=== PATIENT | male | born 1995 | race Caucasian/White ===

== ENCOUNTER 2017-04-28 19:12 | Emergency (ER) | payer BC ==
[2017-04-28] MEDS ORDERED: Lidocaine 1% MPF* 2 ML VIAL INJ ONE (19:14)
[2017-04-28 19:19] VITALS: BP 146/74
[2017-04-28] MEDS ORDERED: Benzoin Compound STICK TOPICAL ONE (19:56)
--- NOTE | 2017-04-28 20:23 | UC ---
Laceration HPI - HPI Summary HPI Summary: RIGHT FOURTH FINGER LACERATION, CUT CUTICLE WITH CAN LID WHILE MAKING DINNER. - History Of Current Complaint Chief Complaint: UCLaceration Stated Complaint: FINGER LAC Time Seen by Provider: 04/28/17 19:23 Hx Obtained From: Patient Laceration Location: Finger Mechanism Of Injury: Sharp Trauma Onset/Duration: Sudden Onset Severity: Mild Aggravating Factors: Movement Related History: Dominant Hand Right - Allergies/Home Medications Allergies/Adverse Reactions: Allergies Allergy/AdvReac Type Severity Reaction Status Date / Time No Known Allergies Allergy Verified 04/28/17 19:20 Home Medications: Home Medications Cmaagpp-Podwutnobhgnc-Hfuolpuo [Excedrin Migraine] 1 tab PO 04/28/17 [History] Cyproheptadine TAB* [Periactin TAB*] 04/28/17 [History] Magnesium 200 mg PO 04/28/17 [History] Mometasone NASAL (NF) [Nasonex (NF)] 1 spray .SEE ORDER 04/28/17 [History] Omeprazole CAP* [Prilosec CAP* 20 MG] 20 mg PO DAILY 04/28/17 [History Confirmed 04/28/17] PMH/Surg Hx/FS Hx/Imm Hx Previously Healthy: Yes - Surgical History Surgical History: Yes Surgery Procedure, Year, and Place: lt wrist - Family History Known Family History: Negative: Blood Disorder - Social History Occupation: Student Lives: With Family Alcohol Use: Weekly Substance Use Type: None Smoking Status (MU): Never Smoked Tobacco Review of Systems Constitutional: Negative Skin: Other - LACERATION RIGHT 4TH FINGER Eyes: Negative ENT: Negative Respiratory: Negative Cardiovascular: Negative Gastrointestinal: Negative Genitourinary: Negative Motor: Negative Neurovascular: Negative Musculoskeletal: Negative Neurological: Negative Psychological: Negative Is Patient Immunocompromised?: No All Other Systems Reviewed And Are Negative: Yes Physical Exam Triage Information Reviewed: Yes Appearance: Well-Appearing, No Pain Distress, Well-Nourished Vital Signs: Initial Vital Signs Temp 99.5 F 04/28/17 19:16 Pulse 71 04/28/17 19:16 Resp 18 04/28/17 19:16 BP 146/74 04/28/17 19:16 Pulse Ox 100 04/28/17 19:16 Vital Signs Reviewed: Yes Eye Exam: Normal ENT Exam: Normal ENT: Positive: Normal ENT inspection, TMs normal Dental Exam: Normal Neck exam: Normal Neck: Positive: Supple, Nontender, No Lymphadenopathy Respiratory Exam: Normal Respiratory: Positive: Chest non-tender, Lungs clear, Normal breath sounds, No respiratory distress, No accessory muscle use Cardiovascular Exam: Normal Cardiovascular: Positive: RRR, No Murmur, Pulses Normal Abdominal Exam: Normal Musculoskeletal Exam: Normal Musculoskeletal: Positive: Strength Intact, ROM Intact, No Edema Neurological Exam: Normal Psychological Exam: Normal Skin: Positive: Other - 0.3CM LACERATION RIGHT 4TH FINGER CUTICLE Laceration Repair - Laceration Repair 1 Description: Linear Laceration Size After Repair: Length (cm) - 0.3, Width (mm) - 2, Depth (mm) - 3 Cleansing Completed Via Routine Prep: Yes Irrigation With Pressure Irrigation Device: Yes Closure Material: Skin Adhesive, SteriStrips Laceration Course/Dx - Differential Dx - Laceration/Wound Differental Diagnoses: Joint Infection, Laceration Provider Diagnoses: RIGHT FOURTH FINGER LACERATION WITH REPAIR (STERISTRIPS AND SKIN ADHESIVE) Discharge - Discharge Plan Condition: Stable Disposition: HOME Patient Education Materials: Finger Fracture (ED), Skin Adhesive Care (ED), Steristrips (ED) Referrals: [facility] [Outside] [facility] [Outside] Images Hands: 1 - 0.3 CM LACERATION HERE
== END 2017-04-28 20:33 | disposition home or self-care (01) ==
LOC: UCEAST 19:12
DX: S61.214A Laceration without foreign body of right ring finger without damage to nail, initial encounter (principal); W26.8XXA Contact with other sharp object(s), not elsewhere classified, initial encounter; Y93.G3 Activity, cooking and baking
CPT/HCPCS: 99201; G0463

== ENCOUNTER 2017-10-23 21:41 | Emergency (ER) | payer BC ==
[2017-10-23] MEDS ORDERED: Acetaminophen TAB* 325 MG PO ONE (23:58)
--- NOTE | 2017-10-23 23:59 | ED ---
Upper Extremity Pain - HPI Summary HPI Summary: 22 male presents ED with complaints of right arm pain after an injury. States he fell after slipping on some grass just prior to arrival. States he has some limited range of motion due to pain. Denies any numbness or tingling. Did not hurt neck or back. Denies any head injury. No other complaints. Did take 2 Advil prior to arrival. No past medical history. Patient is right-hand dominant. - History of Current Complaint Chief Complaint: EDExtremityUpper Stated Complaint: FALL/RT ARM INJURY Time Seen by Provider: 10/23/17 22:58 Hx Obtained From: Patient Mechanism Of Injury: Fall From A Standing Position Onset/Duration: Started Hours Ago, Traumatic, Still Present Timing: Constant Severity Initially: Moderate Severity Currently: Moderate Pain Location: Arm - Right Character: Sharp, Aching Aggravating Factor(s): Movement Alleviating Factor(s): Rest Associated Signs & Symptoms: Positive: Negative Related History: Dominant Hand Right - Allergies/Home Medications Allergies/Adverse Reactions: Allergies Allergy/AdvReac Type Severity Reaction Status Date / Time egg Allergy Hives Verified 10/23/17 21:48 PMH/Surg Hx/FS Hx/Imm Hx Endocrine/Hematology History: Denies: Hx Anticoagulant Therapy, Hx Diabetes Cardiovascular History: Denies: Hx Hypertension Respiratory History: Reports: Hx Asthma - as a child - Surgical History Surgery Procedure, Year, and Place: lt wrist - Immunization History Immunizations Up to Date: Yes Infectious Disease History: No Infectious Disease History: Denies: Traveled Outside the [place] in Last 30 Days - Family History Known Family History: Positive: None Negative: Blood Disorder - Social History Alcohol Use: Weekly Substance Use Type: Reports: None Smoking Status (MU): Never Smoked Tobacco Review of Systems Constitutional: Negative Cardiovascular: Negative Respiratory: Negative Gastrointestinal: Negative Positive: Arthralgia, Myalgia, Decreased ROM Skin: Negative Neurological: Negative All Other Systems Reviewed And Are Negative: Yes Physical Exam Triage Information Reviewed: Yes Vital Signs On Initial Exam: Initial Vitals Temp Pulse Resp BP Pulse Ox 98.8 F 66 16 136/85 100 10/23/17 21:46 10/23/17 21:46 10/23/17 21:46 10/23/17 21:46 10/23/17 21:46 Vital Signs Reviewed: Yes Appearance: Positive: Well-Appearing, No Pain Distress, Well-Nourished Skin: Positive: Warm, Skin Color Reflects Adequate Perfusion, Dry, Other - Small abrasion to right elbow not actively bleeding very superficial. Negative : Cold, Numb, Cyanosis @, Pale, Erythema @, Cold Injury Head/Face: Positive: Normal Head/Face Inspection Eyes: Positive: EOMI ENT: Positive: Hearing grossly normal Neck: Positive: Supple, Nontender Respiratory/Lung Sounds: Positive: Clear to Auscultation, Breath Sounds Present. Negative: Rales, Rhonchi, Wheezes Cardiovascular: Positive: Normal, RRR, Pulses are Symmetrical in both Upper and Lower Extremities - 2+. Negative: Murmur, Rub Abdomen Description: Positive: Nontender, Soft Bowel Sounds: Positive: Present Musculoskeletal: Positive: Limited @ - With range of motion of right arm, worse with abduction. Has good range of motion of the forearm distal to elbow, Pain @ - Right arm, Other - No obvious deformity, crepitus, step-off, ecchymosis, edema. Rest of MSK exam normal. Negative: Edema Left, Edema Right Neurological: Positive: Normal, Sensory/Motor Intact, Alert, Oriented to Person Place, Time, NV Bundle Intact Distally, Normal Gait Diagnostics - Vital Signs Vital Signs Temp Pulse Resp BP Pulse Ox 10/23/17 21:46 98.8 F 66 16 136/85 100 - Laboratory Lab Statement: Any lab studies that have been ordered have been reviewed, and results considered in the medical decision making process. - Radiology right humerous Xray Interpretation: Positive (See Comments) - Surgical next fracture Radiology Interpretation Completed By: ED Physician - Dr. Romero and myself Course/Dx - Course Course Of Treatment: Given Tylenol while in ED patient was comfortable. X-ray was obtained showing surgical neck fracture. Nondisplaced. Placed in a sling. Continue ice, ibuprofen and avoid use. Call make an appointment with orthopedics tomorrow. Aware worsening signs and symptoms to watch out for. No other concerns and rest of exam was normal. - Diagnoses Differential Diagnosis/HQI/PQRI: Positive: Contusion, Fracture (Closed), Strain , Sprain Provider Diagnoses: Fracture closed, humerus Discharge - Sign-Out/Discharge Documenting (check all that apply): Discharge - Discharge Plan Condition: Good Disposition: HOME Patient Education Materials: Arm Fracture in Adults (ED) Referrals: [facility] [Primary Care Provider] - Vahe Lang MD [Medical Doctor] - Additional Instructions: Take ibuprofen/Tylenol for pain and inflammation. Keep arm in sling. Apply ice as needed. Refrain from use of that arm. Call and make an appointment with orthopedics tomorrow. Any new worsening symptoms please seek medical attention. - Billing Disposition and Condition Condition: GOOD Disposition: HOME
[2017-10-24 00:21] VITALS: BP 142/84
--- NOTE | 2017-10-24 07:37 | RAD ---
HISTORY: Right humerus fall, injury COMPARISONS: None VIEWS: 4, Frontal, lateral, and oblique views of the right humerus FINDINGS: BONE DENSITY: Normal. BONES: There is a minimally impacted, slightly angulated fracture of the proximal right humerus at the level of the surgical neck. JOINTS: There is no arthropathy. ALIGNMENT: There is no dislocation. SOFT TISSUES: Unremarkable. OTHER FINDINGS: None. IMPRESSION: PROXIMAL HUMERUS FRACTURE.
== END 2017-10-24 00:17 | disposition home or self-care (01) ==
LOC: ED 21:41
DX: S42.301A Unspecified fracture of shaft of humerus, right arm, initial encounter for closed fracture (principal); W01.0XXA Fall on same level from slipping, tripping and stumbling without subsequent striking against object, initial encounter; Y92.9 Unspecified place or not applicable
CPT/HCPCS: 99282